=== PATIENT | female | born 1970 | race Caucasian/White ===

== ENCOUNTER → 2023-11-04 13:24 | Outpatient (REF) | payer OTHER, SELFPAY | LOC: HWWDC 13:24 | PROVIDERS: ATTENDING PHYSICIAN Family Medicine | DX: E04.1 Nontoxic single thyroid nodule (principal); Z12.31 Encounter for screening mammogram for malignant neoplasm of breast | CPT/HCPCS: 76536 ==

== ENCOUNTER → 2024-01-18 07:32 | Outpatient (REF) | payer OTHER, SELFPAY ==
[2024-01-18 08:03] VITALS: BP 144/85; BP_SYST 85
== END ==
LOC: RADI 07:32
PROVIDERS: ATTENDING PHYSICIAN Family Medicine; REFERRING PHYSICIAN Surgery Surgical Oncology
DX: D34 Benign neoplasm of thyroid gland (principal)
CPT/HCPCS: 88173; 10005